=== PATIENT | male | born 1940 | race Caucasian/White ===

== ENCOUNTER 2016-12-23 17:01 | Emergency (ER) | payer MEDICARE, OTHER ==
[2016-12-23] MEDS ORDERED: TORAdol 30 mg Injection IM ONE (17:28)
[2016-12-23] MEDS ORDERED: TORAdol 30 mg Injection ONE (17:33)
--- NOTE | 2016-12-23 17:33 | ERPHSYRPT ---
- History of Present Illness Time Seen by Provider: 12/23/16 17:07 Source: patient, family Exam Limitations: no limitations Patient Subjective Stated Complaint: rt hip pain Triage Nursing Assessment: has nonradiating pain to rt hip and separate nonradaiting pinpoint pain to outer rt knee. denies injury, denies urination/ bowels. no swelling or bruising. Physician History: patient developed right hip and lower back pain radiating to right knee; no falls; no known injury; no prior hx; pain started a week ago after retiring and sitting; no change in BMs or voiding; no numbness; no other complaints Method of Injury: unknown Occurred: last week Quality: intermittent, aching Severity of Pain-Max: severe Severity of Pain-Current: moderate Lower Extremities Pain: hip: left Modifying Factors: Improves With: movement Associated Symptoms: none Allergies/Adverse Reactions: No Known Drug Allergies Allergy (Unverified 12/23/16 17:17) Home Medications: Amlodipine Besylate 5 mg [Norvasc 5 mg] 5 mg PO DAILY 12/23/16 [History] Escitalopram Oxalate 10 mg [Lexapro 10 MG] 10 mg PO DAILY 12/23/16 [History] Esomeprazole Magnesium [Nexium] 20 mg PO HS 12/23/16 [History] Hydrochlorothiazide [Microzide] 12.5 mg PO HS 12/23/16 [History] Spironolactone 25 mg [Aldactone 25 MG] 25 mg PO HS 12/23/16 [History] Tamsulosin HCl 0.4 mg [Flomax 0.4 MG] 0.4 mg PO HS 12/23/16 [History] Hx Tetanus, Diphtheria Vaccination/Date Given: Yes Hx Influenza Vaccination/Date Given: No Hx Pneumococcal Vaccination/Date Given: Yes Immunizations Up to Date: Yes - Review of Systems Constitutional: No Symptoms Eyes: No Symptoms Ears, Nose, & Throat: No Symptoms Respiratory: No Cough, No Dyspnea, No Wheezing Cardiac: No Chest Pain, No Edema, No Palpitations Abdominal/Gastrointestinal: No Abdominal Pain, No Nausea, No Vomiting, No Diarrhea Genitourinary Symptoms: No Symptoms Musculoskeletal: Arthralgias, Back Pain, Joint Pain (right hip), No Neck Pain, No Deformity, No Fall, No Injury Skin: No Symptoms Neurological: No Symptoms Psychological: No Symptoms Endocrine: No Symptoms Hematologic/Lymphatic: No Symptoms Immunological/Allergic: No Symptoms - Past Medical History Pertinent Past Medical History: Yes Cardiac History: Hypertension Respiratory History: COPD Male Reproductive Disorders: Prostate Problems - Past Surgical History Past Surgical History: Yes Musculoskeletal: Orthopedic Surgery Other Surgical History: rt knee replacement - Social History Smoking Status: Never smoker Exposure to second hand smoke: No Alcohol Use: None Drug Use: none Patient Lives Alone: No Significant Family History: no pertinent family hx - Nursing Vital Signs Nursing Vital Signs: Initial Vital Signs Temperature 97.2 F Temperature Source Oral Pulse Rate 70 Respiratory Rate 18 Blood Pressure [Right Arm] 130/82 Pain Intensity 6 - Physical Exam General Appearance: moderate distress, alert, obese Eyes, Ears, Nose, Throat Exam: normal ENT inspection, pharynx normal, moist mucous membranes Neck Exam: normal inspection, non-tender, supple, full range of motion Cardiovascular/Respiratory Exam: chest non-tender, normal breath sounds, regular rate/rhythm, heart sounds normal, no ecchymosis, no JVD, no M/R/G, no respiratory distress Gastrointestinal/Abdominal Exam: non-tender, soft, no organomegaly Back Exam: normal inspection, other (tender right SI and pain with straigh leg rasising right), No normal range of motion (decrease flexion due to pain), No CVA tenderness, No vertebral tenderness Hips Exam: right: pain, bilateral: non-tender, normal inspection, normal range of motion, no evidence of injury Legs Exam: bilateral leg: non-tender, normal inspection, normal range of motion , no evidence of injury Knees Exam: bilateral knee: non-tender, normal inspection, normal range of motion, no evidence of injury Ankle Exam: bilateral ankle: non-tender, normal inspection, normal range of motion, no evidence of injury Foot Exam: bilateral foot: non-tender, normal inspection, normal range of motion , no evidence of injury DTR - Lower Extremities Exam: knee (R): 4+, knee (L): 4+ Neuro/Tendon Exam: normal sensation, normal motor functions, normal tendon functions, responds to pain Mental Status Exam: alert, oriented x 3, cooperative Skin Exam: normal color, warm, dry, No rash - Course Nursing assessment & vital signs reviewed: Yes - Radiology Exams Right Hip X-ray Interpretation: Interpreted by me, Negative, No Fracture, Other (mild arthritis hip) Pelvis X-ray Interpretation: Interpreted by me, Negative, No Fracture L-Spine X-ray Interpretation: Interpreted by me, No Fracture, Other (DJD and spurring) Ordered Tests: Active Orders 24 hr Category Date Time Status Re-Check Vital Signs STAT Care 12/23/16 17:28 Completed HIP UNI (2V) INCL PEL IF DONE Stat Exams 12/23/16 17:28 Ordered LUMBAR COMPLETE (MIN 4 VIEWS) Stat Exams 12/23/16 17:28 Ordered Medication Summary Discontinued Medications Generic Name Dose Route Start Last Admin Trade Name Fresandi PRN Reason Stop Dose Admin Ketorolac Tromethamine 30 mg 12/23/16 17:28 12/23/16 17:33 Toradol 30 Mg Injection IM 12/23/16 17:29 30 mg STAT ONE Administration Ketorolac Tromethamine Confirm 12/23/16 17:33 Toradol 30 Mg Injection Administered 12/23/16 17:34 Dose 30 mg .ROUTE .STK-MED ONE - Progress Progress: improved, pain not gone completely, re-examined (after xr and meds) Progress Note: 12/23/16 17:33 medicated; xr pending; at bedside; will recheck 12/23/16 18:40 recheck after xr and meds; some relief; discussed xr findings, treatment plan and instructions given; at bedside Counseled pt/family regarding: diagnosis, need for follow-up, rad results - Departure Time of Disposition: 18:41 Departure Disposition: Home Clinical Impression: Sciatica of right side Condition: Stable Critical Care Time: No Instructions: Back Pain With Sciatica Additional Instructions: rest; Back pain instructions. Rest, ice x 24-48 hours, then warm compresses; no heavy lifting (>20#'s) x 3-5 days; call [facility] or [facility] Med doctor in am for follow up appointment and or referral as needed. Return if problems. Take meds as prescribed. Follow-up with family doctor as directed. Call for appointment. Return if any problems. If you smoke please stop. Call or follow up with your family doctor for assistance if you need it to stop. Please wear your seatbelt when driving. Have a nice day. Thank you for allowing us to participate in your care today. :o) Dr Jose Unger Prescriptions: Naproxen Sodium [Anaprox Ds] 550 mg PO Q8HPRN PRN #20 tablet PRN Reason: Pain
[2016-12-23] MEDS ORDERED: Decadron 4 MG INJ IM ONE (18:38)
[2016-12-23] MEDS ORDERED: Decadron 4 MG INJ ONE (18:44)
[2016-12-23 19:03] VITALS: BP 129/71; PULSE 84; O2SAT 95
--- NOTE | 2016-12-24 08:43 | XRAY ---
Indication: Back and right groin pain. No known injury. Comparison: None 5 views of the lumbar spine demonstrates 5 lumbar vertebral segments in normal alignment with mild multilevel degenerative spondylosis including bilateral L5-S1 facet arthropathy, minimal T12-L2 anterior wedging either developmental versus old injury, and scattered vascular calcifications. No acute fracture, subluxation, or pars interarticularis defect.
--- NOTE | 2016-12-24 08:45 | XRAY ---
Indication: Back and right groin pain. No known injury. Comparison: None AP pelvis and 2 views of the right hip demonstrates mild degenerative changes of both hips and scattered vascular calcifications. No acute fracture, dislocation, or suspicious bony lesions.
== END 2016-12-23 19:00 | disposition home or self-care (01) ==
LOC: ED 17:01
DX: M54.31 Sciatica, right side (principal); I10 Essential (primary) hypertension; Z79.899 Other long term (current) drug therapy
CPT/HCPCS: 72110; 73502; 96372; 99283; 99284; J1100; J1885

== ENCOUNTER 2019-08-16 07:18 | Emergency (ER) | payer MEDICARE ==
[2019-08-16] MEDS ORDERED: Sodium Chloride 0.9% 1000 ML 1,000 ML IV STA ×2 (07:23→07:24)
[2019-08-16] MEDS ORDERED: DUONEB 0.5-3 MG/3 ml Neb IH ONE ×3 (07:35→07:58)
--- NOTE | 2019-08-16 07:41 | ERPHSYRPT ---
- History of Present Illness Time Seen by Provider: 08/16/19 07:25 Source: patient, family Exam Limitations: no limitations Patient Subjective Stated Complaint: Pt states "I was dizzy last night but I am weak today." Triage Nursing Assessment: Pt presented alert and oriented X 3, skin pwd. PT has audible wheezes, pt can stand with assistance. Physician History: Patient has had dizziness and generalized weakness since 19:00 on 08/16/2019. Patient denies any focal weakness, loss of vision, vertigo, headache, loss of sensation. Timing/Duration: yesterday, hour(s) (12) Severity: moderate Modifying Factors: Improves With: rest. Worsens With: movement Associated Symptoms: cough, weakness, No nausea, No vomiting, No abdominal pain , No shortness of breath, No heartburn, No diaphoresis, No chills, No chest pain , No fever, No headaches, No loss of appetite, No malaise, No rash, No syncope, No seizure Allergies/Adverse Reactions: No Known Drug Allergies Allergy (Verified 08/16/19 07:28) Home Medications: Amlodipine Besylate 5 mg [Norvasc 5 mg] 5 mg PO DAILY 12/23/16 [History] Escitalopram Oxalate 10 mg [Lexapro 10 MG] 10 mg PO DAILY 12/23/16 [History] Esomeprazole Magnesium [Nexium] 20 mg PO HS 12/23/16 [History] Hydrochlorothiazide [Microzide] 12.5 mg PO HS 12/23/16 [History] Spironolactone 25 mg [Aldactone 25 MG] 25 mg PO HS 12/23/16 [History] Tamsulosin HCl 0.4 mg [Flomax 0.4 MG] 0.4 mg PO HS 12/23/16 [History] Hx Tetanus, Diphtheria Vaccination/Date Given: Yes Hx Influenza Vaccination/Date Given: No Hx Pneumococcal Vaccination/Date Given: Yes Immunizations Up to Date: Yes - Review of Systems Constitutional: No Fever, No Chills Eyes: No Eye Pain, No Vision Changes Ears, Nose, & Throat: No Mouth Swelling, No Throat Swelling, No Painful Swallowing, No Stridor Respiratory: Cough, Wheezing, No Dyspnea Cardiac: No Chest Pain, No Edema, No Palpitations, No Syncope Abdominal/Gastrointestinal: No Abdominal Pain, No Nausea, No Vomiting, No Diarrhea, No Hematemesis, No Hematochezia, No Melena Genitourinary Symptoms: No Dysuria, No Hematuria, No Urinary Retention, No Flank Pain Musculoskeletal: No Back Pain, No Neck Pain Skin: No Rash Neurological: No Dizziness, No Focal Weakness, No Sensory Changes, No Tremors Psychological: No Symptoms Endocrine: No Symptoms All Other Systems: Reviewed and Negative - Past Medical History Pertinent Past Medical History: Yes Neurological History: No Pertinent History Cardiac History: Congestive Heart Failure, Coronary Artery Disease, Hypertension , Myocardial Infarction (MD) Respiratory History: COPD GI Medical History: No Pertinent History History: Renal Disease (chronic kidney disease) Male Reproductive Disorders: Prostate Problems - Past Surgical History Past Surgical History: Yes Cardiac: Cardiac Catheterization, Cardiac Stent Musculoskeletal: Orthopedic Surgery Other Surgical History: rt knee replacement - Social History Smoking Status: Former smoker Exposure to second hand smoke: No Alcohol Use: None Drug Use: none Patient Lives Alone: No Significant Family History: no pertinent family hx - Nursing Vital Signs Nursing Vital Signs: Initial Vital Signs Temperature 97.9 F 08/16/19 07:24 Pulse Rate 90 08/16/19 07:24 Respiratory Rate 24 08/16/19 07:24 Blood Pressure 132/57 08/16/19 07:24 O2 Sat by Pulse Oximetry 95 08/16/19 07:24 Pain Scale Pain Intensity 0 - Physical Exam General Appearance: no apparent distress, alert Eye Exam: PERRL/EOMI, eyes nml inspection Ears, Nose, Throat Exam: normal ENT inspection, TMs normal, pharynx normal, moist mucous membranes Neck Exam: normal inspection, non-tender, supple, full range of motion Respiratory Exam: airway intact, diminished breath sounds, rhonchi, wheezing, No respiratory distress, No accessory muscle use Cardiovascular Exam: regular rate/rhythm, normal heart sounds, normal peripheral pulses Gastrointestinal/Abdomen Exam: soft, normal bowel sounds, No tenderness, No distention, No mass, No rebound Back Exam: normal inspection, normal range of motion, No CVA tenderness, No vertebral tenderness Extremity Exam: normal inspection, normal range of motion, pelvis stable Neurologic Exam: alert, oriented x 3, cooperative, car checker II-XII nml as tested, normal mood/affect, nml cerebellar function, nml station & gait, sensation nml, No motor deficits Skin Exam: normal color, warm, dry, No rash Lymphatic Exam: No adenopathy SpO2 Interpretation: normal SpO2: 95 O2 Delivery: Nasal Cannula (wears it constantly) - Course Nursing assessment & vital signs reviewed: Yes EKG Interpreted by Me: RATE (94), Sinus Rhythm, NORMAL AXIS, NORMAL INTERVALS, Right Bundle Branch Block, NORMAL ST-T, Other (no significant change in comparison to EKG from 05/10/2018) - Radiology Exams Chest X-ray Interpretation: Interpreted by me, Reviewed by me, No Fracture, No Pneumonia, No Pneumothorax, No Infiltrates, Other (per radiologist interpretation: Chest remained hyperinflated and clear again with incidental calcified granulomas. Heart and mediastinal structures within normal limits. Bony thorax intact again with mild osteopenia and degenerative changes. Overall impression: None acute hyperinflated chest with chronic features.) - CT Exams Head CT Interpretation: Negative, Other (per radiologist interpretation: Atopic global atrophy. No acute intracranial hemorrhage, abnormal extra-axial fluid collection, or mass effect. Fourth ventricle is midline without hydrocephalus. Bony calvarium intact. Visualized paranasal sinuses and mastoid air cells are clear. Overall impression: No acute intracranial abnormalities.) - Radiology Ultrasound Exam Carotid Ultrasound: Other (no significant stenosis) Ordered Tests: Active Orders 24 hr Category Date Time Status Automatic Car Wash Attendant STAT Care 08/16/19 07:22 Active IV Insertion STAT Care 08/16/19 07:22 Active NPO (ED) STAT Care 08/16/19 07:25 Active Pulse Oximetry (ED) STAT Care 08/16/19 07:22 Active Pulse Oximetry (ED) STAT Care 08/16/19 07:23 Active CAROTID BILATERAL [US] Stat Exams 08/16/19 07:26 Taken CHEST 1 VIEW (PORTABLE) Stat Exams 08/16/19 07:23 Completed HEAD WITHOUT CONTRAST [CT] Stat Exams 08/16/19 07:25 Completed AMYLASE Stat Lab 08/16/19 07:30 Completed BLOOD CULTURE Stat Lab 08/16/19 07:35 Received CBC W DIFF Stat Lab 08/16/19 07:30 Completed CK-Creatinine Phosphokinase Stat Lab 08/16/19 07:30 Completed CMP Stat Lab 08/16/19 07:30 Completed CULTURE,URINE Stat Lab 08/16/19 09:21 Ordered LIPASE Stat Lab 08/16/19 07:30 Completed Lactic Acid Stat Lab 08/16/19 07:22 Completed MAGNESIUM Stat Lab 08/16/19 07:30 Completed NT PRO BNP Stat Lab 08/16/19 07:30 Completed PROTIME WITH INR Stat Lab 08/16/19 07:30 Completed PTT Stat Lab 08/16/19 07:30 Completed TROPONIN Q3H Lab 08/16/19 07:30 Completed TROPONIN Q3H Lab 08/16/19 10:30 Ordered TROPONIN Q3H Lab 08/16/19 13:30 Ordered TROPONIN Q3H Lab 08/16/19 16:30 Ordered TROPONIN Q3H Lab 08/16/19 19:30 Ordered UA W/RFX UR CULTURE Stat Lab 08/16/19 09:22 Completed VENOUS BLOOD GAS Urgent Lab 08/16/19 07:24 Completed Peak Expiratory Flow Rate ONCE RT 08/16/19 08:00 Completed Respiratory Therapy Assessment DAILY RT 08/16/19 08:00 Completed Medication Summary Discontinued Medications Generic Name Dose Route Start Last Admin Trade Name Freq PRN Reason Stop Dose Admin Albuterol/Ipratropium 3 ml 08/16/19 07:35 08/16/19 08:08 Duoneb 0.5-3 Mg/3 Ml Neb IH 08/16/19 07:36 3 ml STAT ONE Administration Albuterol/Ipratropium 6 ml 08/16/19 07:36 Duoneb 0.5-3 Mg/3 Ml Neb IH 08/16/19 07:37 STAT ONE Albuterol/Ipratropium Confirm 08/16/19 07:58 Duoneb 0.5-3 Mg/3 Ml Neb Administered 08/16/19 07:59 Dose 3 ml IH .STK-MED ONE Sodium Chloride 1,000 mls @ 999 mls/hr 08/16/19 07:23 08/16/19 09:05 Sodium Chloride 0.9% 1000 Ml IV 08/16/19 08:23 Infused .Q1H1M STA Infusion Sodium Chloride 1,000 mls @ 999 mls/hr 08/16/19 07:24 08/16/19 09:59 Sodium Chloride 0.9% 1000 Ml IV 08/16/19 08:24 Not Given .Q1H1M STA Sodium Chloride Confirm 08/16/19 07:51 Sodium Chloride 0.9% 1000 Ml Administered 08/16/19 07:52 Dose 1,000 mls @ ud .ROUTE .STK-MED ONE Lab/Rad Data: Laboratory Result Diagrams 08/16/19 07:30 08/16/19 07:30 Laboratory Results 08/16/19 08/16/19 08/16/19 Range/Units 09:22 07:30 07:30 WBC (4.0-10.5) K/mm3 RBC (4.1-5.6) M/mm3 Hgb (12.5-18.0) gm/dl Hct (42-50) % MCV (78-100) fl MCH (26-32) pg MCHC (32-36) g/dl RDW (11.5-14.0) % Plt Count (150-450) K/mm3 MPV (6-9.5) fl Gran % (36.0-66.0) % Eos # (Auto) (0-0.5) Absolute Lymphs (auto) (1.0-4.6) Absolute Monos (auto) (0.0-1.3) Lymphocytes % (24.0-44.0) % Monocytes % (0.0-12.0) % Eosinophils % (0.00-5.0) % Basophils % (0.0-0.4) % Absolute Granulocytes (1.4-6.9) Basophils # (0-0.4) PT (8.83-12.87) SECONDS INR (0.8-3.0) APTT (24.1-36.1) SECONDS pO2/FiO2 Ratio % VBG pH (7.32-7.42) VBG pCO2 at Pat Temp (42-55) mm/Hg VBG pO2 at Pat Temp (25-40) mm/Hg VBG HCO3 (22-28) meq/L VBG O2 Sat (Chrissie) (95-100) VBG Base Excess (-2.0-2.0) VBG Hemoglobin VBG Carboxyhemoglobin (0.0-6.9) % T HGB POC Potassium (3.5-5.1) Sodium (137-145) mmol/L Potassium (3.5-5.1) mmol/L Chloride (98-107) mmol/L Carbon Dioxide (22-30) mmol/L Anion Gap (5-15) MEQ/L BUN (9-20) mg/dL Creatinine (0.66-1.25) mg/dL Estimated GFR ML/MIN Glucose (74-106) mg/dL Lactic Acid (0.4-2.0) Calcium (8.4-10.2) mg/dL Magnesium 2.2 (1.6-2.3) mg/dL Total Bilirubin (0.2-1.3) mg/dL AST (17-59) U/L ALT (0-50) U/L Alkaline Phosphatase (38-126) U/L Creatine Kinase (55-170) U/L Troponin I 0.014 (0.000-0.034) ng/mL NT-Pro-B Natriuret Pep (0-1800) pg/mL Serum Total Protein (6.3-8.2) g/dL Albumin (3.5-5.0) g/dL Amylase (30-110) U/L Lipase (23-300) U/L Urine Color YELLOW (YELLOW) Urine Appearance CLEAR (CLEAR) Urine pH 6.0 (5-6) Ur Specific [place] 1.012 (1.005-1.025) Urine Protein NEGATIVE (Negative) Urine Ketones NEGATIVE (NEGATIVE) Urine Blood NEGATIVE (0-5) Deng/ul Urine Nitrite NEGATIVE (NEGATIVE) Urine Bilirubin NEGATIVE (NEGATIVE) Urine Urobilinogen NEGATIVE (0-1) mg/dL Ur Leukocyte Esterase NEGATIVE (NEGATIVE) Urine WBC (Auto) NONE (0-5) /HPF Urine RBC (Auto) NONE (0-2) /HPF U Epithel Cells (Auto) NONE (FEW) /HPF Urine Bacteria (Auto) NONE (NEGATIVE) /HPF Urine Culture Reflexed ORDERED SEPARATELY (NO) Urine Glucose NEGATIVE (NEGATIVE) mg/dL 08/16/19 08/16/19 08/16/19 Range/Units 07:30 07:30 07:30 WBC (4.0-10.5) K/mm3 RBC (4.1-5.6) M/mm3 Hgb (12.5-18.0) gm/dl Hct (42-50) % MCV (78-100) fl MCH (26-32) pg MCHC (32-36) g/dl RDW (11.5-14.0) % Plt Count (150-450) K/mm3 MPV (6-9.5) fl Gran % (36.0-66.0) % Eos # (Auto) (0-0.5) Absolute Lymphs (auto) (1.0-4.6) Absolute Monos (auto) (0.0-1.3) Lymphocytes % (24.0-44.0) % Monocytes % (0.0-12.0) % Eosinophils % (0.00-5.0) % Basophils % (0.0-0.4) % Absolute Granulocytes (1.4-6.9) Basophils # (0-0.4) PT 11.5 (8.83-12.87) SECONDS INR 1.02 (0.8-3.0) APTT 32.9 (24.1-36.1) SECONDS pO2/FiO2 Ratio % VBG pH (7.32-7.42) VBG pCO2 at Pat Temp (42-55) mm/Hg VBG pO2 at Pat Temp (25-40) mm/Hg VBG HCO3 (22-28) meq/L VBG O2 Sat (Chrissie) (95-100) VBG Base Excess (-2.0-2.0) VBG Hemoglobin VBG Carboxyhemoglobin (0.0-6.9) % T HGB POC Potassium (3.5-5.1) Sodium (137-145) mmol/L Potassium (3.5-5.1) mmol/L Chloride (98-107) mmol/L Carbon Dioxide (22-30) mmol/L Anion Gap (5-15) MEQ/L BUN (9-20) mg/dL Creatinine (0.66-1.25) mg/dL Estimated GFR ML/MIN Glucose (74-106) mg/dL Lactic Acid (0.4-2.0) Calcium (8.4-10.2) mg/dL Magnesium (1.6-2.3) mg/dL Total Bilirubin (0.2-1.3) mg/dL AST (17-59) U/L ALT (0-50) U/L Alkaline Phosphatase (38-126) U/L Creatine Kinase 156 (55-170) U/L Troponin I (0.000-0.034) ng/mL NT-Pro-B Natriuret Pep 147 (0-1800) pg/mL Serum Total Protein (6.3-8.2) g/dL Albumin (3.5-5.0) g/dL Amylase 66 (30-110) U/L Lipase 75 (23-300) U/L Urine Color (YELLOW) Urine Appearance (CLEAR) Urine pH (5-6) Ur Specific [place] (1.005-1.025) Urine Protein (Negative) Urine Ketones (NEGATIVE) Urine Blood (0-5) Deng/ul Urine Nitrite (NEGATIVE) Urine Bilirubin (NEGATIVE) Urine Urobilinogen (0-1) mg/dL Ur Leukocyte Esterase (NEGATIVE) Urine WBC (Auto) (0-5) /HPF Urine RBC (Auto) (0-2) /HPF U Epithel Cells (Auto) (FEW) /HPF Urine Bacteria (Auto) (NEGATIVE) /HPF Urine Culture Reflexed (NO) Urine Glucose (NEGATIVE) mg/dL 08/16/19 08/16/19 08/16/19 Range/Units 07:30 07:30 07:24 WBC 7.1 (4.0-10.5) K/mm3 RBC 3.72 L (4.1-5.6) M/mm3 Hgb 12.0 L (12.5-18.0) gm/dl Hct 39.5 L (42-50) % MCV 106.2 H (78-100) fl MCH 32.2 H (26-32) pg MCHC 30.4 L (32-36) g/dl RDW 13.2 (11.5-14.0) % Plt Count 187 (150-450) K/mm3 MPV 10.0 H (6-9.5) fl Gran % 78.5 H (36.0-66.0) % Eos # (Auto) 0.27 (0-0.5) Absolute Lymphs (auto) 0.90 L (1.0-4.6) Absolute Monos (auto) 0.34 (0.0-1.3) Lymphocytes % 12.6 L (24.0-44.0) % Monocytes % 4.8 (0.0-12.0) % Eosinophils % 3.8 (0.00-5.0) % Basophils % 0.3 (0.0-0.4) % Absolute Granulocytes 5.60 (1.4-6.9) Basophils # 0.02 (0-0.4) PT (8.83-12.87) SECONDS INR (0.8-3.0) APTT (24.1-36.1) SECONDS pO2/FiO2 Ratio 28.0 % VBG pH 7.38 (7.32-7.42) VBG pCO2 at Pat Temp 74 H* (42-55) mm/Hg VBG pO2 at Pat Temp 33 (25-40) mm/Hg VBG HCO3 43.8 H* (22-28) meq/L VBG O2 Sat (Chrissie) 68.0 L (95-100) VBG Base Excess 15.4 H (-2.0-2.0) VBG Hemoglobin 12.0 VBG Carboxyhemoglobin 1.8 (0.0-6.9) % T HGB POC Potassium 4.5 (3.5-5.1) Sodium 143 (137-145) mmol/L Potassium 4.6 (3.5-5.1) mmol/L Chloride 99 (98-107) mmol/L Carbon Dioxide 37 H (22-30) mmol/L Anion Gap 11.5 (5-15) MEQ/L BUN 39 H (9-20) mg/dL Creatinine 2.22 H (0.66-1.25) mg/dL Estimated GFR 30.4 ML/MIN Glucose 188 H (74-106) mg/dL Lactic Acid (0.4-2.0) Calcium 9.4 (8.4-10.2) mg/dL Magnesium (1.6-2.3) mg/dL Total Bilirubin 0.50 (0.2-1.3) mg/dL AST 27 (17-59) U/L ALT 20 (0-50) U/L Alkaline Phosphatase 81 (38-126) U/L Creatine Kinase (55-170) U/L Troponin I (0.000-0.034) ng/mL NT-Pro-B Natriuret Pep (0-1800) pg/mL Serum Total Protein 7.3 (6.3-8.2) g/dL Albumin 3.8 (3.5-5.0) g/dL Amylase (30-110) U/L Lipase (23-300) U/L Urine Color (YELLOW) Urine Appearance (CLEAR) Urine pH (5-6) Ur Specific [place] (1.005-1.025) Urine Protein (Negative) Urine Ketones (NEGATIVE) Urine Blood (0-5) Deng/ul Urine Nitrite (NEGATIVE) Urine Bilirubin (NEGATIVE) Urine Urobilinogen (0-1) mg/dL Ur Leukocyte Esterase (NEGATIVE) Urine WBC (Auto) (0-5) /HPF Urine RBC (Auto) (0-2) /HPF U Epithel Cells (Auto) (FEW) /HPF Urine Bacteria (Auto) (NEGATIVE) /HPF Urine Culture Reflexed (NO) Urine Glucose (NEGATIVE) mg/dL 08/16/19 Range/Units 07:22 WBC (4.0-10.5) K/mm3 RBC (4.1-5.6) M/mm3 Hgb (12.5-18.0) gm/dl Hct (42-50) % MCV (78-100) fl MCH (26-32) pg MCHC (32-36) g/dl RDW (11.5-14.0) % Plt Count (150-450) K/mm3 MPV (6-9.5) fl Gran % (36.0-66.0) % Eos # (Auto) (0-0.5) Absolute Lymphs (auto) (1.0-4.6) Absolute Monos (auto) (0.0-1.3) Lymphocytes % (24.0-44.0) % Monocytes % (0.0-12.0) % Eosinophils % (0.00-5.0) % Basophils % (0.0-0.4) % Absolute Granulocytes (1.4-6.9) Basophils # (0-0.4) PT (8.83-12.87) SECONDS INR (0.8-3.0) APTT (24.1-36.1) SECONDS pO2/FiO2 Ratio % VBG pH (7.32-7.42) VBG pCO2 at Pat Temp (42-55) mm/Hg VBG pO2 at Pat Temp (25-40) mm/Hg VBG HCO3 (22-28) meq/L VBG O2 Sat (Chrissie) (95-100) VBG Base Excess (-2.0-2.0) VBG Hemoglobin VBG Carboxyhemoglobin (0.0-6.9) % T HGB POC Potassium (3.5-5.1) Sodium (137-145) mmol/L Potassium (3.5-5.1) mmol/L Chloride (98-107) mmol/L Carbon Dioxide (22-30) mmol/L Anion Gap (5-15) MEQ/L BUN (9-20) mg/dL Creatinine (0.66-1.25) mg/dL Estimated GFR ML/MIN Glucose (74-106) mg/dL Lactic Acid 1.0 (0.4-2.0) Calcium (8.4-10.2) mg/dL Magnesium (1.6-2.3) mg/dL Total Bilirubin (0.2-1.3) mg/dL AST (17-59) U/L ALT (0-50) U/L Alkaline Phosphatase (38-126) U/L Creatine Kinase (55-170) U/L Troponin I (0.000-0.034) ng/mL NT-Pro-B Natriuret Pep (0-1800) pg/mL Serum Total Protein (6.3-8.2) g/dL Albumin (3.5-5.0) g/dL Amylase (30-110) U/L Lipase (23-300) U/L Urine Color (YELLOW) Urine Appearance (CLEAR) Urine pH (5-6) Ur Specific [place] (1.005-1.025) Urine Protein (Negative) Urine Ketones (NEGATIVE) Urine Blood (0-5) Deng/ul Urine Nitrite (NEGATIVE) Urine Bilirubin (NEGATIVE) Urine Urobilinogen (0-1) mg/dL Ur Leukocyte Esterase (NEGATIVE) Urine WBC (Auto) (0-5) /HPF Urine RBC (Auto) (0-2) /HPF U Epithel Cells (Auto) (FEW) /HPF Urine Bacteria (Auto) (NEGATIVE) /HPF Urine Culture Reflexed (NO) Urine Glucose (NEGATIVE) mg/dL - Progress Progress: improved Progress Note: 08/16/19 08:28 patient has much improved airflow throughout with no signs of any rhonchi, crackles, rales or rubs. The patient has no tachypnea, accessory muscle use, or any signs of respiratory distress. 08/16/19 09:30 Patient feels much better and prefers to be discharged home. he is in no respiratory distress, no tachypnea, no accessory muscle use, oxygenating well, and in sinus rhythm on the activities specialist. 08/16/19 09:54 Discussed the patient and results with Dr Drummond, covering for patient's physician, Dr Quiros. Dr Drummond and I agreed patient may be discharged home and can be continued to be evaluated as an outpatient at this time and followed up the elevated creatinine as an outpatient as he has no other criteria to meet inpatient admission at this time. 08/16/19 10:12 Patient has no chest pain, dyspnea and does not feel weak at this time. Patient is in sinus rhythm on the activities specialist. Patient is hemodynamically good condition with no tachycardia, tachypnea, and good oxygenation on monitor on his baseline 2 L of nasal cannula. Discussed with Dr.: Jeni Will see patient in: office Counseled pt/family regarding: lab results, diagnosis, need for follow-up, rad results - Departure Departure Disposition: Home Clinical Impression: Generalized weakness, Acute on chronic renal insufficiency COPD (chronic obstructive pulmonary disease) Qualifiers: COPD type: unspecified COPD Qualified Code(s): J44.9 - Chronic obstructive pulmonary disease, unspecified Hypertension Qualifiers: Hypertension type: essential hypertension Qualified Code(s): I10 - Essential ( primary) hypertension Condition: Good Critical Care Time: No Referrals: ISAAC QUIROS [Primary Care Provider] - Follow Up with PCP/3 days Instructions: Chronic Obstructive Pulmonary Disease, High Blood Pressure (DC), Acute Kidney Failure (DC), Generalized Weakness (DC) Additional Instructions: Follow-up with your doctor in the next 3-5 days to follow-up your kidney function. Return immediately back to the emergency department if any worsening shortness of breath, weakness, new loss of strength, loss of sensation, change in vision, chest pain, heart racing, or any other concerning signs or symptoms that were not present at today's emergency department visit for immediate reevaluation in the department Prescriptions: Albuterol/Ipratropium 3ml Neb* [DUONEB 0.5-3 MG/3 ml Neb] 3 ml NEBULIZE Q4H PRN PRN #1 box PRN Reason: Wheezing/Chest Congestion
[2019-08-16 07:46] LABS: VBG BASE EXCESS 15.4 (-2.0-2.0); VBG CARBOXYHEMOGLOBIN 1.8 % T HGB (0.0-6.9); VBG HCO3- 43.8 meq/L (22-28); VBG POTASSIUM 4.5 (3.5-5.1); VBG pH 7.38 (7.32-7.42)
[2019-08-16] MEDS ORDERED: Sodium Chloride 0.9% 1000 ML 1,000 ML ONE (07:51)
[2019-08-16 07:57] LABS: BASOPHIL % 0.3 % (0.0-0.4); Basophil (Absolute #) 0.02 (0-0.4); Eosinophil % 3.8 % (0.00-5.0); Eosinophil (Absolute #) 0.27 (0-0.5); Granulocytes % 78.5 % (36.0-66.0); Hematocrit 39.5 % (42-50); Lymphocytes % 12.6 % (24.0-44.0); Mean Cell Volume 106.2 fl (78-100); Mean Corpuscular Hgb Concent. 30.4 g/dl (32-36); Monocyte (Absolute #) 0.34 (0.0-1.3); Monocytes % 4.8 % (0.0-12.0); Platelet Count 187 K/mm3 (150-450); Red Blood Count 3.72 M/mm3 (4.1-5.6); Red Cell Distribution Width 13.2 % (11.5-14.0); White Blood Count 7.1 K/mm3 (4.0-10.5)
[2019-08-16 07:58] LABS: INR 1.02 (0.8-3.0); PROTIME 11.5 SECONDS (8.83-12.87)
[2019-08-16 08:01] LABS: PTT 32.9 SECONDS (24.1-36.1)
[2019-08-16 08:04] LABS: Mean Corpuscular Hemoglobin 32.2 pg (26-32)
[2019-08-16 08:10] LABS: ALBUMIN 3.8 g/dL (3.5-5.0); AMYLASE 66 U/L (30-110); ANION GAP 11.5 MEQ/L (5-15); BILIRUBIN,TOTAL 0.5 mg/dL (0.2-1.3); Calcium 9.4 mg/dL (8.4-10.2); Creatinine 1 2.22 mg/dL (0.66-1.25); LIPASE 75 U/L (23-300); Potassium 4.6 mmol/L (3.5-5.1); Total Protein 7.3 g/dL (6.3-8.2)
[2019-08-16 08:20] LABS: CK-Creatinine Phosphokinase 156 U/L (55-170); NT PRO BNP 147 pg/mL (0-1800)
--- NOTE | 2019-08-16 08:34 | XRAY ---
Indication: Cough. Wheezing. COPD. Comparison: February 02, 2014. Portable chest remains hyperinflated and clear again with incidental calcified granulomas. Heart and mediastinal structures within normal limits. Bony thorax intact again with mild osteopenia and degenerative changes. Impression: Nonacute hyperinflated chest with chronic features.
--- NOTE | 2019-08-16 08:34 | XRAY ---
Indication: Dizziness. COPD. Multiple contiguous axial images obtained through the head without contrast Comparison: None Age-appropriate global atrophy. No acute intracranial hemorrhage, abnormal extra-axial fluid collection, or mass effect. Fourth ventricle is midline without hydrocephalus. Bony calvarium intact. Visualized paranasal sinuses and mastoid air cells are clear. Impression: No acute intracranial abnormalities. CT DI 65.67
[2019-08-16 09:37] LABS: Appearance CLEAR (CLEAR); Bilirubin NEGATIVE (NEGATIVE); Blood NEGATIVE Ery/ul (0-5); Glucose NEGATIVE (NEGATIVE); Ketones NEGATIVE (NEGATIVE); Leukocyte Esterase NEGATIVE (NEGATIVE); Nitrite NEGATIVE (NEGATIVE); Protein,Urine Dip NEGATIVE (Negative); Specific Gravity 1.012 (1.005-1.025); Urobilinogen NEGATIVE mg/dL (0-1)
--- NOTE | 2019-08-16 10:23 | XRAY ---
Indication: Dizziness. Two-dimensional sonogram and color Doppler imaging of the carotid arteries of the neck performed. Comparison: None Examination of the right carotid circulation demonstrates mild calcified plaquing at the level of the bulb extending into the origin of the internal carotid artery. Minimal calcified plaquing in the proximal internal carotid artery. PSV of the CCA is 173 cm/s. PSV of the CCA is 74 cm/s. ICA/CCA ratio is 2.4. Normal antegrade vertebral artery flow. Examination of the left carotid circulation demonstrates minimal heterogeneous plaquing at the level of the bulb extending into the origin and proximal internal carotid artery. PSV of the CCA is 149 cm/s. PSV of the ICA is 166 cm/s. ICA/CCA ratio is 1.1. Normal antegrade vertebral artery flow. 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 Velocity measurements and ratios favor 50-69% stenosis on the right and no hemodynamically significant stenosis on the left.
[2019-08-16 11:00] VITALS: BP 127/44; PULSE 78; O2SAT 96
== END 2019-08-16 10:56 | disposition home or self-care (01) ==
LOC: ED 07:18
DX: I65.21 Occlusion and stenosis of right carotid artery (principal); J44.9 Chronic obstructive pulmonary disease, unspecified; I10 Essential (primary) hypertension; R53.1 Weakness; N18.9 Chronic kidney disease, unspecified; I50.9 Heart failure, unspecified; I25.2 Old myocardial infarction; Z98.61 Coronary angioplasty status; Z79.899 Other long term (current) drug therapy; R42 Dizziness and giddiness; Z99.81 Dependence on supplemental oxygen
CPT/HCPCS: 36000; 36415; 70450; 71045; 80053; 81001; 82150; 82550; 82805; 83605; 83690; 83735; 83880; 84484; 85025; 85610; 85730; 87040; 87086; 93041; 93880; 94150; 94640; 94760; 96360; 99284; A9270-GY